=== PATIENT | female | born 1990 | race Caucasian/White ===

== ENCOUNTER 2017-05-30 15:35 | Emergency (ER) | payer BC ==
[2017-05-30 15:48] VITALS: BP 136/90
--- NOTE | 2017-05-30 17:44 | EDM.PDOC ---
ED HPI GENERAL MEDICAL PROBLEM - General Chief Complaint: Chest Pain Stated Complaint: CHEST PAIN Time Seen by Provider: 05/30/17 15:59 Source of Information: Reports: Patient History Limitations: Reports: No Limitations - History of Present Illness INITIAL COMMENTS - FREE TEXT/NARRATIVE: 27-year-old female presents for evaluation and treatment of left-sided chest tightness. Patient reports that the chest pain started about 4 hours prior to arrival today. She reports that she has been coughing for the last week. She has been coughing up some mucus. She reports that the cough has mostly subsided. She does not feel like she is having any trouble breathing or feeling short of breath but states it hurts to breathe. She describes the pressure as a tightness and squeezing sensation. She states that her "ribs hurt ". She rates the pain as a 7 or 8 out of 10. Patient denies any fevers, earaches, sore throat , nausea or vomiting. Patient reports some muscle spasms in her bilateral legs. She denies any recent travel. She denies any ill contacts. patient does have an implanted IUD. Patient smokes one half pack cigarettes a day. Onset: Today Duration: Hour(s): (4) Left Upper Chest Pain Score (Numeric/FACES): 8 - Related Data Allergies Allergy/AdvReac Type Severity Reaction Status Date / Time citalopram [From Celexa] Allergy Hives Verified 05/30/17 15:49 Home Meds: Home Meds . [No Known Home Meds] 05/30/17 [History] Past Medical History - Past Surgical History Female Surgical History: Reports: D&C Social & Family History - Tobacco Use Smoking Status *Q: Current Every Day Smoker Years of Tobacco use: 10 Packs/Tins Daily: 0.5 - Recreational Drug Use Recreational Drug Use: No ED ROS GENERAL - Review of Systems Review Of Systems: See Below Constitutional: Denies: Fever HEENT: Denies: Ear Pain, Throat Pain Respiratory: Reports: Pleuritic Chest Pain, Cough, Sputum. Denies: Shortness of Breath Cardiovascular: Reports: Chest Pain. Denies: Edema GI/Abdominal: Reports: Abdominal Pain. Denies: Nausea, Vomiting Musculoskeletal: Reports: Leg Pain ED EXAM, GENERAL - Physical Exam Exam: See Below Exam Limited By: No Limitations General Appearance: Alert, WD/WN, No Apparent Distress Eye Exam: Bilateral Eye: Normal Inspection Ears: Normal External Exam, Normal Canal, Hearing Grossly Normal, Normal TMs Ear Exam: Bilateral Ear: TM normal Nose: Normal Inspection Throat/Mouth: Normal Inspection, Normal Lips, Normal Voice, No Airway Compromise Respiratory/Chest: No Respiratory Distress, Lungs Clear, Normal Breath Sounds, Chest Non-Tender Cardiovascular: Normal Peripheral Pulses, Regular Rate, Rhythm, No Murmur GI/Abdominal: Soft, Non-Tender Extremities: Normal Inspection, Non-Tender, No Pedal Edema. No: Los's Sign Neurological: Alert, Oriented, Normal Cognition Psychiatric: Normal Affect, Normal Mood Skin Exam: Warm, Dry, Normal Color EKG INTERPRETATION EKG Date: 05/30/17 Time: 15:50 Rhythm: NSR Rate (Beats/Min): 108 [place]: Normal P-Wave: Present QRS: Normal ST-T: Normal QT: Normal EKG Interpretation Comments: Diffuse T wave inversion. sinus tachycardia at 108 bpm. No acute changes. Reviewd by myself and Dr. Cherelle Darden. Course - Vital Signs Last Recorded V/S: Last Vital Signs Temp 36.6 C 05/30/17 15:46 Pulse 94 05/30/17 15:46 Resp 16 05/30/17 15:46 BP 136/90 05/30/17 15:46 Pulse Ox 98 05/30/17 15:46 - Orders/Labs/Meds Labs: Laboratory Tests 05/30/17 05/30/17 05/30/17 Range/Units 16:00 16:00 16:00 WBC 7.69 (3.98-10.04) K/mm3 RBC 4.54 (3.98-5.22) M/mm3 Hgb 14.1 (11.2-15.7) gm/L Hct 40.5 (34.1-44.9) % MCV 89.2 (79.4-94.8) fl MCH 31.1 (25.6-32.2) pg MCHC 34.8 (32.2-35.5) g/dl RDW Std Deviation 41.1 (36.4-46.3) fL Plt Count 204 (182-369) K/mm3 MPV 10.4 (9.4-12.3) fl Neut % (Auto) 64.4 (34.0-71.1) % Lymph % (Auto) 26.1 (19.3-51.7) % [place] % (Auto) 8.6 (4.7-12.5) % Eos % (Auto) 0.5 L (0.7-5.8) Baso % (Auto) 0.3 (0.1-1.2) % Neut # (Auto) 4.95 (1.56-6.13) K/mm3 Lymph # (Auto) 2.01 (1.18-3.74) K/mm3 [place] # (Auto) 0.66 H (0.24-0.36) K/mm3 Eos # (Auto) 0.04 (0.04-0.36) K/mm3 Baso # (Auto) 0.02 (0.01-0.08) K/mm3 D-Dimer, Quantitative 0.25 (0.19-0.59) mg/L Sodium 141 (136-145) mEq/L Potassium 3.3 L (3.5-5.1) mEq/L Chloride 106 (98-107) mEq/L Carbon Dioxide 27 (21-32) mEq/L Anion Gap 11.3 (5-15) BUN 13 (7-18) mg/dL Creatinine 0.8 (0.55-1.02) mg/dL Est Cr Clr Drug Dosing 74.13 mL/min Estimated GFR (MDRD) > 60 (>60) mL/min BUN/Creatinine Ratio 16.3 (14-18) Glucose 95 (74-106) mg/dL Calcium 9.4 (8.5-10.1) mg/dL Total Bilirubin 0.4 (0.2-1.0) mg/dL AST 26 (15-37) U/L ALT 35 (14-59) U/L Alkaline Phosphatase 57 (46-116) U/L Troponin I < 0.017 (0.00-0.056) ng/mL Total Protein 7.4 (6.4-8.2) g/dl Albumin 4.1 (3.4-5.0) g/dl Globulin 3.3 gm/dL Albumin/Globulin Ratio 1.2 (1-2) - Radiology Interpretation Free Text/Narrative:: chest xray shows no acute intrathoracic process. - Re-Assessments/Exams Free Text/Narrative Re-Assessment/Exam: 05/30/17 17:40 I reviewed the chest x-ray, EKG and lab results with the patient. I feel she is likely suffering from pleurisy. She had a cough recently and she has pain with breathing. Recommend [id number] ibuprofen. Reassured this should resolve on its own. Will discharge home at this time. Discharge instructions as documented. Departure - Departure Time of Disposition: 17:42 Disposition: Home, Self-Care 01 Condition: Good Clinical Impression: Pleurisy - Discharge Information Instructions: Pleurisy Referrals: PCP,Jessie [Primary Care Provider] - Jeannine Cabezas PA [Physician Key Maker] - Forms: ED Department Discharge Additional Instructions: [id number] ibuprofen or Aleve for pain and symptom relief. Rest and drink plenty of fluids. Recommend drinking Gatorade or Powerade. Your potassium was slightly low during the ER. Recommend increasing your potassium intake by increasing consumption of bananas, etc. Follow-up with family medicine or internal medicine for symptoms are not much better in 1 week. Recommend Jeannine Cabezas at the [facility] here in [place]. Please call [phone] to schedule with her. Please return to the ER if your Symptoms change or worsen.
--- NOTE | 2017-05-31 19:58 | CR ---
Chest: Two views of the chest were obtained. Comparison: No prior study. Heart size and mediastinum are within normal limits. Lungs are clear with no acute infiltrates. Bony structures are unremarkable for the patient's age. Impression: 1. Nothing acute is identified on two-view chest x-ray. Diagnostic code #1
== END 2017-05-30 17:50 | disposition home or self-care (01) ==
LOC: JD.ED 15:35
DX: R09.1 Pleurisy (principal); F17.210 Nicotine dependence, cigarettes, uncomplicated; Z88.8 Allergy status to other drugs, medicaments and biological substances
CPT/HCPCS: 36415; 71020; 71020-26; 80053; 84484; 85025; 85379; 93005; 99284; 99285-25